=== PATIENT | male | born 1980 | race Two or more races ===

== ENCOUNTER 2018-07-30 17:27 | Emergency (ER) | payer MEDICAID ==
[~2018-07-30] VITALS: Ht 182.9 cm; Wt 109.0 kg
[2018-07-30 17:38] VITALS: BP 133/90
== END 2018-07-30 18:20 | disposition home or self-care (01) ==
LOC: ER 17:27
DX: K08.89 Other specified disorders of teeth and supporting structures (principal)
CPT/HCPCS: 99283